=== PATIENT | female | born 1970 | race Caucasian/White ===

== ENCOUNTER 2019-08-09 14:41 | Emergency (ER) | payer MEDICARE, MEDICAID ==
[2019-08-09 15:10] LABS: ABSOLUTE EOSINOPHILS # (AUTO) 0.1 10^3/uL (0.0-0.6); ABSOLUTE LYMPHOCYTES (AUTO) 2.1 10^3/uL (0.5-4.7); ABSOLUTE MONOCYTES (AUTO) 0.5 10^3/uL (0.1-1.4); ABSOLUTE NEUT (AUTO) 4.1 10^3/uL (1.7-8.2); BASOPHILS % (AUTO) 0.5 % (0-2); EOSINOPHILS % (AUTO) 1.5 % (0-6); HEMATOCRIT 47.4 % (36.0-47.0); HEMOGLOBIN 16.4 g/dL (12.0-15.5); LYMPHOCYTES % (AUTO) 30.4 % (13-45); MEAN CORPUSCULAR HEMOGLOBIN 33.2 pg (27.0-33.4); MEAN CORPUSCULAR HGB CONC 34.6 g/dL (32.0-36.0); MEAN CORPUSCULAR VOLUME 96 fl (80-97); PLATELET COUNT 215 10^3/uL (150-450); RED BLOOD COUNT 4.94 10^6/uL (3.72-5.28); RED CELL DISTRIBUTION WIDTH 13.6 % (11.5-14.0); SEGMENTED NEUTROPHILS % (AUTO) 59.6 % (42-78); TOTAL CELLS COUNTED % (AUTO) 100 %; WHITE BLOOD COUNT 6.8 10^3/uL (4.0-10.5)
[2019-08-09 15:21] LABS: INTERNATIONAL RATION (INR) 0.92; PROTHROMBIN TIME 12.4 SEC (11.4-15.4)
[2019-08-09 15:22] LABS: PARTIAL THROMBOPLASTIN TIME 27.7 SEC (23.5-35.8)
[2019-08-09 15:30] LABS: ALBUMIN 4.1 g/dL (3.5-5.0); ALKALINE PHOSPHATASE 55 U/L (38-126); ANION GAP 10 (5-19); ASPARTATE AMINO TRANSFERASE 200 U/L (14-36); BILIRUBIN,TOTAL 0.4 mg/dL (0.2-1.3); BLOOD UREA NITROGEN 12 mg/dL (7-20); CALCIUM 10.6 mg/dL (8.4-10.2); CARBON DIOXIDE 23 mmol/L (22-30); CHLORIDE 105 mmol/L (98-107); GLUCOSE 139 mg/dL (75-110); POTASSIUM 3.7 mmol/L (3.6-5.0); SALICYLATE 3.2 mg/dL (2.0-20.0); TOTAL PROTEIN 7.6 g/dL (6.3-8.2)
[2019-08-09 15:33] LABS: APPEARANCE,URINE CLEAR; BILIRUBIN,URINE NEGATIVE (NEGATIVE); COLOR,URINE STRAW; GLUCOSE, URINE NEGATIVE (NEGATIVE); KETONES,URINE NEGATIVE (NEGATIVE); LEUKOCYTE ESTERASE,URINE NEGATIVE (NEGATIVE); NITRITE,URINE NEGATIVE (NEGATIVE); PROTEIN,URINE NEGATIVE (NEGATIVE); URINE SPECIFIC GRAVITY 1.005; UROBILINOGEN,URINE NEGATIVE mg/dL (<2.0)
[2019-08-09 15:47] LABS: URINE AMPHETAMINES SCREEN NEGATIVE; URINE BARBITURATES SCREEN NEGATIVE; URINE MARIJUANA (THC) SCREEN NEGATIVE; URINE METHADONE SCREEN NEGATIVE; URINE PHENCYCLIDINE SCREEN NEGATIVE
[2019-08-09 15:50] LABS: ACETAMINOPHEN < 10 ug/mL (10-30)
[2019-08-09 15:50] LABS: URINE BENZODIAZEPINES SCREEN UNCONFIRMED POSITIVE; URINE COCAINE SCREEN UNCONFIRMED POSITIVE
[2019-08-09] MEDS ORDERED: HALOPERIDOL LACTATE INJ 5 MG/1 ML VIAL IM ONE (18:42)
--- NOTE | 2019-08-09 18:51 | ER Document Report ---
ED Medical Screen (RME) - General Chief Complaint: Overdose Stated Complaint: POSSIBLE OVERDOSE Time Seen by Provider: 08/09/19 18:35 - HPI Notes: 08/09/19 18:47 49-year-old female to the emergency department with complaints of intentional overdose on Xanax. Apparently she had 60 tablets of Xanax prescribed to her and she only has 28 left in the bottle. She states that she was trying to use the Xanax to make herself "numb". She also yells at this provider and states "you would not want a beer either if you add my life". She would not state who wrote her for the Xanax. She states that she will only go to [place]. She denies any chest pain, shortness of breath. Patient is predominantly screaming and cussing at this provider during medical screening exam. I performed a brief medical screening exam on the patient and determined that she will need further evaluation and management by mainside provider. She is e xceptionally combative and aggressive with staff so we will go ahead and give Haldol. Poison control was called and she is supposed to be monitored for 4 hours after taking the Xanax. The initial call to poison control was at approximately 1517 this afternoon. Psych consult was placed. - Related Data Allergies/Adverse Reactions: No Known Allergies Allergy (Unverified 08/09/19 15:02) Home Medications: gabapentin. xanax Physical Exam - Vital signs Vitals: Resp 14 08/09/19 14:57 Course - Vital Signs Vital signs: Temp Pulse Resp BP Pulse Ox 21 H 110/75 98 08/09/19 18:01 08/09/19 18:01 08/09/19 18:01 - Laboratory Result Diagrams: 08/09/19 14:51 08/09/19 14:51 Laboratory results interpreted by me: 08/09/19 08/09/19 08/09/19 14:51 14:51 15:12 Hgb 16.4 H Hct 47.4 H Glucose 139 H Calcium 10.6 H AST 200 H Urine Blood MODERATE H Acetaminophen < 10 L
--- NOTE | 2019-08-09 20:33 | ER Document Report ---
ED General - General Chief Complaint: Overdose Stated Complaint: POSSIBLE OVERDOSE Time Seen by Provider: 08/09/19 18:35 - HPI Notes: Patient is a 49-year-old female with a history of bipolar disorder, depression, schizophrenia, who presents to the emergency department for evaluation. She states that she took approximately 30 Xanax around noon today. She denies to me that she is suicidal, she states she just wanted to "feel numb." She is currently homeless since [place]. She had to give up her dog of 9 years that she has no place to live. She is currently staying with her 's new girlfriend. She is disabled, unable to work at this result of her mental illness. The patient is unaware of any medications that she is taken for schizophrenia in the past, states she was diagnosed with this somewhere in [place] several years ago. She denies any homicidal ideation. No visual or auditory hallucination. In regards to drugs she states "what have and I done." She admits to smoking crack yesterday. She admits to taking her Xanax recreationally. - Related Data Allergies/Adverse Reactions: No Known Allergies Allergy (Unverified 08/09/19 15:02) Home Medications: gabapentin. xanax Past Medical History - General Information source: Patient - Social History Smoking Status: Current Every Day Smoker Frequency of alcohol use: Heavy - Drinks at least 1 beer daily Drug Abuse: Cocaine, Prescription drugs Family History: Reviewed & Not Pertinent Patient has suicidal ideation: Yes Patient has homicidal ideation: Yes Psychiatric Medical History: Reports: Hx Bipolar Disorder, Hx Depression, Hx Schizophrenia Review of Systems - Review of Systems Constitutional: No symptoms reported EENT: No symptoms reported Cardiovascular: No symptoms reported Respiratory: No symptoms reported Gastrointestinal: No symptoms reported Genitourinary: No symptoms reported Musculoskeletal: No symptoms reported Skin: No symptoms reported Neurological/Psychological: See HPI Physical Exam - Vital signs Vitals: Resp 14 08/09/19 14:57 - Notes Notes: This is a disheveled appearing 49-year-old female who appears her stated age in no acute distress. She is awake and alert, GCS 15. Cooperative with examiner. Vital signs reviewed, please refer to chart. Head is normocephalic, atraumatic. Pupils equal round, reactive to light. Neck is supple without meningismus. Heart is regular rate and rhythm. Lungs are clear to auscultation bilaterally. Abdomen is soft, nontender, normoactive bowel sounds throughout. Extremities without cyanosis, clubbing. Posterior calves are nontender. Peripheral pulses are equal. Skin is warm and dry. Patient's the neurological exam is nonfocal. Course - Re-evaluation Re-evalutation: 08/09/19 20:31 Patient presents to the emergency department for evaluation. She comes in after an overdose. She is not a reliable historian. She has significant reasons for depression. I am concerned that this was in fact a suicide attempt. I am also concerned about this patient's level of substance abuse. IVC orders will be placed. She had initial salicylate level that was not nondetectable, so repeat is ordered. If this comes back negative she will be medically cleared, as her ingestion was over 8 hours ago. She has been medically stable. 08/09/19 21:42 Repeat salicylate level was down. Patient is medically cleared. - Vital Signs Vital signs: Temp Pulse Resp BP Pulse Ox 17 113/79 98 08/09/19 20:25 08/09/19 20:25 08/09/19 20:25 - Laboratory Result Diagrams: 08/09/19 14:51 08/09/19 14:51 Laboratory results interpreted by me: 08/09/19 08/09/19 08/09/19 14:51 14:51 15:12 Hgb 16.4 H Hct 47.4 H Glucose 139 H Calcium 10.6 H AST 200 H Urine Blood MODERATE H Salicylates Acetaminophen < 10 L 08/09/19 19:55 Hgb Hct Glucose Calcium AST Urine Blood Salicylates 1.3 L Acetaminophen - EKG Interpretation by Me Additional EKG results interpreted by me: 08/09/19 20:32 Sinus mechanism with a rate of 88 bpm. Normal axis and intervals. No acute ST changes concerning for ischemia or infarction. Discharge - Discharge Clinical Impression: Polysubstance abuse, Intentional overdose of drug in tablet form Condition: Stable Disposition: OTHER
[2019-08-09] MEDS ORDERED: TRAZODONE HCL 50 MG TABLET PO ONE (22:13)
--- NOTE | 2019-08-09 23:01 | EKG REPORT ---
SEVERITY:- BORDERLINE ECG - SINUS RHYTHM NONSPECIFIC ANTERIOR ST-T CHANGES : Confirmed by: Ran Driscoll MD 09-Aug-2019 23:00:28
[2019-08-10] MEDS ORDERED: IBUPROFEN 600 MG TABLET PO ONE (10:57)
--- NOTE | 2019-08-10 11:00 | ER Document Report ---
Doctor's Note Notes: 08/10/19 10:59 Patient is sitting up on the side of the bed. Patient reports that she has chronic pain issues in the right hip and is requesting Motrin for pain at this time. She denies suicidal or homicidal ideation at this time. She has a normal gait normal mentation
--- NOTE | 2019-08-10 12:13 | PSYCHOLOGICAL NOTE ---
Psych Note - Psych Note Date seen by psych provider: 08/10/19 Time seen by psych provider: 08:50 - 1st attempt 1200 Psych Note: Reason For Consult: [facility] with a reported overdose. A 24hr petition was completed by the evening attending physician for overdosing on xanax with a history of mental health and polysubstance abuse, reporting increased depression. Patient denies intentionally overdosing on her medications in an attempt to harm herself. She reports taking large amounts of Xanax and attempt to control her anxiety. Patient states she is currently experiencing anxiety and is requesting to leave. Patient states she is uncomfortable, hot, sweating and experiencing extreme difficulty in controlling her anxiety. Clinician asked patient if it was possible the patient was experiencing withdrawal symptoms rather than actual anxiety. Patient demonstrated the inability to have insight into this possibility stating that she is prescribed Xanax for her anxiety and it is not withdrawal. Patient is alert and orientated to person, place, time and circumstance. Mood is irritable with liability with congruent affect. Patient denies suicidal and homicidal ideation. Psychomotor agitation noted with patient constantly re-shifting and rubbing her arms. Delusions are absent and behaviors congruent with an intact reality based presentation ie organized and linear thought process. Eye contact is fair. Conversational speech is within normal rate, tone and prosody. Intellectual abilities appear to be within the average range. Attention and concentration are fair. Insight, judgment, impulse control are fair to poor. Patient reports having anxiety; however, it appears the patient is experiencing withdrawal; she is sweating, has psychomotor agitation, irritability, and mood liability. Check in conducted with patient Clinician Medication recommendations per [facility]'s contracted psychiatrist Dr. Caren HINTON are as follows Haldol 5mg one time dose Cogentin 1mg one time dose Impression/Plan: Dr. Hussein was consulted to care management of this patient; attending physicians in agreement with recommendations and disposition.
[2019-08-10] MEDS ORDERED: HALOPERIDOL 5 MG TABLET PO ONE (13:05)
[2019-08-10] MEDS ORDERED: BENZTROPINE MESYLATE 1 MG TABLET PO ONE (13:05)
[2019-08-10 16:23] VITALS: BP 124/69
== END 2019-08-10 16:30 | disposition home or self-care (01) ==
LOC: ER 14:41
DX: T42.4X2A Poisoning by benzodiazepines, intentional self-harm, initial encounter (principal); F19.10 Other psychoactive substance abuse, uncomplicated; Z59.0 Homelessness; G89.29 Other chronic pain; M25.551 Pain in right hip
CPT/HCPCS: 93005; 99285; 96372; 36415; 80307 ×4; 85025; 85610; 85730; 80053; 81001; 93010; A9270 ×4; J1630

== ENCOUNTER 2019-11-29 19:59 | Emergency (ER) | payer MEDICARE, MEDICAID ==
[2019-11-29] MEDS ORDERED: ASPIRIN 81 MG TABLET, CHEWABLE PO ONE (20:55)
--- NOTE | 2019-11-29 20:58 | ER Document Report ---
ED Medical Screen (RME) - General Chief Complaint: Chest Pain Stated Complaint: CHEST PAIN Time Seen by Provider: 11/29/19 20:55 Mode of Arrival: Wheelchair Information source: Patient Notes: 49-year-old female presented to ED for complaint of chest pain that radiates around to her back underneath her left shoulder blade. She states she has been very short of breath. She is also very constipated. She states she had to self disimpact herself yesterday and today. She is alert oriented respirations regular nonlabored. She states she does smoke a pack a day drinks about 6-12 beers a day and does smoke marijuana. I have greeted and performed a rapid initial assessment of this patient. A comprehensive ED assessment and evaluation of the patient, analysis of test results and completion of medical decision making process will be conducted by an additional ED providers. - Related Data Allergies/Adverse Reactions: No Known Allergies Allergy (Unverified 08/09/19 15:02) Past Medical History - Social History Chew tobacco use (# tins/day): No Frequency of alcohol use: Heavy Drug Abuse: Marijuana Psychiatric Medical History: Reports: Hx Bipolar Disorder, Hx Depression, Hx Schizophrenia Physical Exam - Vital signs Vitals: Temp Pulse Resp BP Pulse Ox 98.4 F 84 20 117/53 L 94 11/29/19 20:13 11/29/19 20:13 11/29/19 20:13 11/29/19 20:13 11/29/19 20:13 Course - Vital Signs Vital signs: Temp Pulse Resp BP Pulse Ox 98.4 F 84 20 117/53 L 94 11/29/19 20:51 11/29/19 20:13 11/29/19 20:13 11/29/19 20:13 11/29/19 20:13
[2019-11-29 21:15] LABS: ABSOLUTE EOSINOPHILS # (AUTO) 0.2 10^3/uL (0.0-0.6); ABSOLUTE LYMPHOCYTES (AUTO) 2.2 10^3/uL (0.5-4.7); ABSOLUTE MONOCYTES (AUTO) 0.9 10^3/uL (0.1-1.4); ABSOLUTE NEUT (AUTO) 2.4 10^3/uL (1.7-8.2); BASOPHILS % (AUTO) 0.4 % (0-2); EOSINOPHILS % (AUTO) 4.4 % (0-6); HEMATOCRIT 35.8 % (36.0-47.0); HEMOGLOBIN 12.5 g/dL (12.0-15.5); LYMPHOCYTES % (AUTO) 38.4 % (13-45); MEAN CORPUSCULAR HEMOGLOBIN 34.7 pg (27.0-33.4); MEAN CORPUSCULAR HGB CONC 34.9 g/dL (32.0-36.0); MEAN CORPUSCULAR VOLUME 100 fl (80-97); MONOCYTES % (AUTO) 15.6 % (3-13); PLATELET COUNT 229 10^3/uL (150-450); RED BLOOD COUNT 3.59 10^6/uL (3.72-5.28); RED CELL DISTRIBUTION WIDTH 13.9 % (11.5-14.0); SEGMENTED NEUTROPHILS % (AUTO) 41.2 % (42-78); TOTAL CELLS COUNTED % (AUTO) 100 %; WHITE BLOOD COUNT 5.7 10^3/uL (4.0-10.5)
--- NOTE | 2019-11-29 21:33 | RADIOLOGY REPORT (SQ) ---
EXAM DESCRIPTION: PA and lateral radiographs of the chest. CLINICAL HISTORY: 49 years Female, Chest pain COMPARISON: None. FINDINGS: Lungs: Lungs are clear. No pneumonia or edema. No pneumothorax or pleural effusion. Mediastinum: Cardiac and mediastinal silhouette are normal. Bones: Osseous structures are normal. IMPRESSION: Unremarkable radiographs of the chest
[2019-11-29 21:35] LABS: ALKALINE PHOSPHATASE 51 U/L (38-126); ANION GAP 6 (5-19); ASPARTATE AMINO TRANSFERASE 220 U/L (14-36); BILIRUBIN,TOTAL 0.2 mg/dL (0.2-1.3); BLOOD UREA NITROGEN 13 mg/dL (7-20); CALCIUM 9.1 mg/dL (8.4-10.2); CARBON DIOXIDE 27 mmol/L (22-30); CHLORIDE 102 mmol/L (98-107); GLUCOSE 117 mg/dL (75-110); POTASSIUM 4.2 mmol/L (3.6-5.0); TOTAL PROTEIN 7.4 g/dL (6.3-8.2)
--- NOTE | 2019-11-29 21:46 | RADIOLOGY REPORT (SQ) ---
EXAM DESCRIPTION: Single supine view of the abdomen CLINICAL HISTORY: 49 years Female, Abdominal pain with constipation COMPARISON: None. FINDINGS: Small amount of scattered stool is seen throughout the colon. The bowel is not dilated. There is ingested material in the stomach. Lung bases are clear. Postsurgical change of right hip arthroplasty is identified and there is extensive heterotopic ossification adjacent to the right hip. IMPRESSION: Small volume of stool scattered throughout the colon. No obstruction.
--- NOTE | 2019-11-30 00:26 | ER Document Report ---
Entered by DAVID SANDERS SCRIBE 11/29/19 9517 Acting as scribe for:ERNIE THAKUR IV, MD ED General - General Chief Complaint: Chest Pain Stated Complaint: CHEST PAIN Time Seen by Provider: 11/29/19 20:55 Primary Care Provider: BRIDGET CABRALES MD [HONORARY] - Follow up as needed Mode of Arrival: Wheelchair Information source: Patient, Emergency Med Personnel Notes: This 49 year old female patient presents to the ED today with complaints of chest pain that radiates to her back for the past x2 weeks. Per ED nurse, patient took an unknown amount of Benadryl tablets prior to arrival and is now drowsy. Upon exam, the patient is still somnolent with slurred speech, so HPI is limited. Patient has a history of polysubstance abuse, bipolar disorder, schizophrenia, and depression. - Related Data Allergies/Adverse Reactions: No Known Allergies Allergy (Unverified 08/09/19 15:02) Past Medical History - General Information source: Patient - Social History Smoking Status: Current Every Day Smoker Cigarette use (# per day): Yes Chew tobacco use (# tins/day): No Smoking Education Provided: No Frequency of alcohol use: Heavy Drug Abuse: Marijuana Family History: Reviewed & Not Pertinent Patient has suicidal ideation: No Patient has homicidal ideation: No Psychiatric Medical History: Reports: Hx Bipolar Disorder, Hx Depression, Hx Schizophrenia Review of Systems - Review of Systems -: Yes ROS unobtainable due to patient's medical condition Physical Exam - Vital signs Vitals: Temp Pulse Resp BP Pulse Ox 98.4 F 84 20 117/53 L 94 11/29/19 20:13 11/29/19 20:13 11/29/19 20:13 11/29/19 20:13 11/29/19 20:13 - General General appearance: Other - Very somnolent. Poor historian In distress: None - HEENT Head: Normocephalic, Atraumatic Eyes: Normal Pupils: Pinpoint - Respiratory Respiratory status: No respiratory distress Chest status: Nontender Breath sounds: Normal Chest palpation: Normal - Cardiovascular Rhythm: Regular Heart sounds: Normal auscultation Murmur: No Friction rub: No Gallop: None auscultated - Abdominal Inspection: Normal Distension: No distension Bowel sounds: Normal Tenderness: Nontender - Abdomen soft Organomegaly: No organomegaly - Back Back: Normal, Nontender - Extremities General upper extremity: Normal inspection General lower extremity: Normal inspection - Neurological Neuro grossly intact: Yes Speech: Other - Slurred Cranial nerves: Normal. No: Facial palsy - Psychological Associated symptoms: Other - Unable to assess due to patient's medical condition - Skin Skin Temperature: Warm Skin Moisture: Dry Skin Color: Normal Course - Re-evaluation Re-evalutation: 11/30/19 02:47 Results of ED MSE discussed with patient. All questions were answered. Emergency signs and symptoms, reasons to return to the emergency department di scussed with patient. - Vital Signs Vital signs: Temp Pulse Resp BP Pulse Ox 98.4 F 84 12 97/61 L 96 11/29/19 20:51 11/29/19 20:13 11/30/19 02:51 11/30/19 02:51 11/30/19 02:55 - Laboratory Result Diagrams: 11/29/19 21:02 11/29/19 21:02 Laboratory results interpreted by me: 11/29/19 11/29/19 11/30/19 21:02 21:02 00:35 RBC 3.59 L Hct 35.8 L MCV 100 H MCH 34.7 H [place] % (Auto) 15.6 H Seg Neutrophils % 41.2 L Sodium 134.7 L Glucose 117 H AST 220 H ALT 257 H Urine Blood Leukocyte Esterase Rfl Salicylates < 1.0 L Acetaminophen < 10 L 11/30/19 01:05 RBC Hct MCV MCH [place] % (Auto) Seg Neutrophils % Sodium Glucose AST ALT Urine Blood MODERATE H Leukocyte Esterase Rfl SMALL H Salicylates Acetaminophen - Diagnostic Test Radiology reviewed: Reports reviewed - EKG Interpretation by Me Additional EKG results interpreted by me: 11/30/19 02:51 EKG obtained on 11/29/2019 at 2007 hrs. was interpreted by this MD. Findings: Normal sinus rhythm, rate 85, normal axis, P waves proceed QRS complexes, QRS complexes appear narrow, there are no obvious patterns of ST segment elevation or depression present to suggest acute myocardial ischemia or infarction. Imp ression: Normal sinus rhythm with nonspecific ST segments. Discharge - Discharge Clinical Impression: Cocaine abuse, Benzodiazepine abuse Chest pain Qualifiers: Chest pain type: unspecified Qualified Code(s): R07.9 - Chest pain, unspecified Condition: Good Disposition: HOME, SELF-CARE Instructions: Chest Pain of Unclear Cause ([facility]) Additional Instructions: Return to the Emergency Department without delay if any worse. HOME CARE INSTRUCTIONS & INFORMATION: Thank you for choosing us for your medical needs. We hope you're satisfied with the care you received. After you leave, you must properly care for your problem and, at the same time, observe its progress. Any condition can change. Some illnesses can change rapidly over hours or days. If your condition worsens, return to the Emergency Department or see your physician promptly. ABOUT YOUR X-RAYS AND EKG'S: If you had an EKG or X-rays taken, they have been read by the Emergency Physician. The X-rays and EKG's will also be read by a Radiologist or Materials Mgmt Tech within 24 hours. If discrepancies are noted, you will be notified by telephone. Please be certain the ED has a correct telephone number & address where you can be reached. Also, realize that some fractures or abnormalities do not show up on initial X-rays. If your symptoms continue, see your physician. ABOUT YOUR LABORATORY TEST: If you had laboratory tests, the results have been reviewed by the Emergency Physician. Some test results (for example cultures) may not be available for several days. You will be contacted if any test result shows you need additional treatment. Please be certain the ED has a correct telephone number and address where you can be reached. ABOUT YOUR MEDICATIONS: You will receive instructions on how to take your medicine on the prescription label you receive. Additional information may be provided by the Pharmacy. If you have questions afterwards, call the ED for clarification or further instructions. Some prescribed medications may cause drowsiness. Do not perform tasks such as driving a car or operating machinery without consulting your Pharmacist. If you feel you need a refill of pain medication, your condition will need re-evaluation. Please do not call for a refill of any medication. ABOUT YOUR SIGNATURE: Signature of this document acknowledges to followin. Understanding that you received emergency treatment and that you may be released before al medical problems are known or treated. Please be certain the ED has a correct phone number & address where you can be reached. 2. Acknowledgement that you will arrange for follow-up care as recommended. 3. Authorization for the Emergency Physician to provide information to your follow-up Physician in order to maximize your care. AT ANY TIME, IF YOUR SYMPTOMS CHANGE SIGNIFICANTLY OR WORSEN OR YOU DEVELOP NEW SYMPTOMS, RETURN TO THE EMERGENCY DEPARTMENT IMMEDIATELY FOR RE-EVALUATION. OUR GOAL IS TO PROVIDE EXCELLENT MEDICAL CARE! WE HOPE THAT WE HAVE MET YOUR EXPECTATIONS DURING YOUR EMERGENCY DEPARTMENT VISIT AND THAT YOU FEEL YOU HAVE RECEIVED EXCELLENT CARE! Cocaine Abuse Cocaine causes many dangerous medical problems. Problems can occur even with "usual" amounts. Cocaine affects judgement, creating a sense of invulnerability. Cocaine users often make bad decisions that seem "great" at the time. Most cocaine users eventually will be hurt by bad job performance, damaged personal relations, crime, and unsafe sexual practices. Toxic effects of cocaine can include seizures, hallucinations, delusions, high blood pressure, heart damage, or sudden . There's always the risk of a "bad batch." But heart attacks, brain hemorrhages, or cardiac arrest can occur unpredictably even with "normal" use. Injection of cocaine is risky for abscesses, endocarditis (heart infection), pneumonia, and AIDS. Withdrawal from cocaine often causes anxiety and drug cravings. Some users become paranoid and psychotic. Many treatment programs are available, but you must make the decision to quit. Medication can be prescribed to control the symptoms of cocaine toxicity (beta blockers or benzodiazepines). Withdrawal symptoms may require tranquilizers. Referrals: BRIDGET CABRALES MD [HONORARY] - Follow up as needed I personally performed the services described in the documentation, reviewed and edited the documentation which was dictated to the scribe in my presence, and it accurately records my words and actions.
[2019-11-30 01:20] LABS: APPEARANCE,URINE CLOUDY; BILIRUBIN,URINE NEGATIVE (NEGATIVE); COLOR,URINE YELLOW; GLUCOSE, URINE NEGATIVE (NEGATIVE); KETONES,URINE NEGATIVE (NEGATIVE); PROTEIN,URINE NEGATIVE (NEGATIVE); UROBILINOGEN,URINE NEGATIVE mg/dL (<2.0)
[2019-11-30 01:23] LABS: ACETAMINOPHEN < 10 ug/mL (10-30); ALCOHOL < 10 mg/dL (NONE DETECTED); SALICYLATE < 1.0 mg/dL (2.0-20.0)
[2019-11-30 01:31] LABS: URINE AMPHETAMINES SCREEN NEGATIVE; URINE BARBITURATES SCREEN NEGATIVE; URINE MARIJUANA (THC) SCREEN NEGATIVE; URINE METHADONE SCREEN NEGATIVE; URINE PHENCYCLIDINE SCREEN NEGATIVE
[2019-11-30 01:32] LABS: URINE BENZODIAZEPINES SCREEN UNCONFIRMED POSITIVE; URINE COCAINE SCREEN UNCONFIRMED POSITIVE
[2019-11-30 02:57] VITALS: BP 97/61
[2019-11-30] MEDS ORDERED: ONDANSETRON ODT 4 MG TAB (6 TAB/ER DISP) PO PRN (03:18)
[2019-11-30] MEDS ORDERED: ONDANSETRON HCL INJ/PF 4 MG/2 ML SDV IV ONE (03:18)
--- NOTE | 2019-11-30 10:44 | EKG REPORT ---
SEVERITY:- BORDERLINE ECG - SINUS RHYTHM BORDERLINE T ABNORMALITIES, DIFFUSE LEADS : Confirmed by: Wendy Shanks 30-Nov-2019 10:43:11
== END 2019-11-30 03:50 | disposition home or self-care (01) ==
LOC: ER 19:59
DX: R07.9 Chest pain, unspecified (principal); F14.10 Cocaine abuse, uncomplicated; F15.10 Other stimulant abuse, uncomplicated; M54.9 Dorsalgia, unspecified; R40.0 Somnolence; R47.81 Slurred speech; F17.210 Nicotine dependence, cigarettes, uncomplicated
CPT/HCPCS: 36415; 71046; 74018; 80053; 80307; 81001; 83735; 84484; 85025; 93005; 93010; 99285